=== PATIENT | female | born 1970 | race Caucasian/White ===

== ENCOUNTER 2016-08-24 20:26 | Emergency (ER) | payer OTHER ==
[~2016-08-24] VITALS: Ht 160 cm; Wt 77.1 kg
[2016-08-24 20:26] VITALS: BP 131/80; PULSE 91; RESP 20; TEMP 98.4; O2SAT 98
[2016-08-24 21:46] LABS: BILIRUBIN,URINE NEGATIVE (NEGATIVE); BLOOD, URINE 3+ (NEGATIVE); CLARITY/URINE CLOUDY (CLEAR); COLOR,URINE RED (YELLOW); GLUCOSE,URINE NEGATIVE (NEGATIVE); KETONES,URINE NEGATIVE (NEGATIVE); LEUKOCYTE ESTERASE ,URINE 1+ (NEGATIVE); NITRITE, URINE POSITIVE (NEGATIVE); PH,URINE 7.5 (5.0-8.0); PROTEIN URINE 3+ (NEGATIVE)
[2016-08-24 22:25] LABS: RBC,URINE >100 /HPF (0-3)
[2016-08-24 22:26] LABS: BACTERIA,URINE MODERATE /HPF (None Seen); MUCUS,URINE None Seen /LPF (None Seen); WBC,URINE 20-50 /HPF (0-3)
[2016-08-24 22:45] VITALS: BP 121/76; PULSE 80; RESP 18; TEMP 98
[2016-08-25 01:43] VITALS: O2SAT 98
== END 2016-08-24 22:45 | disposition home or self-care (01) ==
LOC: SED 20:26
DX: N39.0 Urinary tract infection, site not specified (principal); R03.0 Elevated blood-pressure reading, without diagnosis of hypertension
CPT/HCPCS: 81000-TC; 81025; 87086; 87186-TC; 99284